=== PATIENT | male | born 1995 | race Caucasian/White ===

== ENCOUNTER 2023-04-19 17:58 | Emergency (ER) | payer MEDICAID, SELFPAY ==
[2023-04-19 18:11] VITALS: BP 110/63; PULSE 83; RESP 18; TEMP 37.7; O2SAT 99; BMI 21.0
--- NOTE | 2023-04-19 18:50 | ED.GENADULT ---
HPI - General Adult General Chief complaint: Post Op Complication Stated complaint: recent surgery lots of pain Time Seen by Provider: 04/19/23 17:59 History of Present Illness HPI narrative: This 28-year-old female transition to male underwent a hysterectomy 5 days ago and comes in with concern about pain and the possibility that he may have taken too much medicine. He states that he took 5 oxycodone tablets brought out through the day today. He does have a history of alcoholism and has gone through treatment. He states that he was not taking any medicines prior to this surgery. He arrives here with normal vital signs. His temperature is a bit below borderline fever at 99.9. He does not describe any particular new symptoms but states that there is a fair amount of anxiety around his pain and recovery from this surgery. He also is beginning to have some constipation from taking these medications. Related Data Home Medications Medication Instructions Recorded Confirmed cariprazine 3 mg capsule (Vraylar) 3 mg PO DAILY 04/19/23 04/19/23 cyproheptadine 2 mg/5 mL oral syrup 2 mg PO BID PRN 04/19/23 04/19/23 gabapentin 300 mg capsule 300 mg PO 3XD 04/19/23 04/19/23 medroxyprogesterone 10 mg tablet 30 mg PO DAILY 04/19/23 04/19/23 mirtazapine 30 mg tablet 30 mg PO QPM 04/19/23 04/19/23 nicotine (polacrilex) 4 mg buccal 4 mg PO nicotine cravings 04/19/23 lozenge olanzapine 10 mg tablet 10 mg PO QPM 04/19/23 04/19/23 oxycodone 5 mg tablet mg PO 04/19/23 simethicone 125 mg chewable tablet mg PO 04/19/23 (Gas Relief Extra Strength) testosterone cypionate 200 mg/mL mg IM 04/19/23 intramuscular oil viloxazine 100 mg capsule,extended 100 mg PO DAILY 04/19/23 04/19/23 release 24 hr (Qelbree) zolpidem 10 mg tablet 10 mg PO QPM 04/19/23 04/19/23 Allergies Allergy/AdvReac Type Severity Reaction Status Date / Time No Known Drug Allergies Allergy Verified 04/19/23 18:05 Review of Systems Status of ROS: Reports: 10 or more systems reviewed and unremarkable except as noted in History and below Narrative: Constitutional: No fevers, no weight gain or loss. Eyes: No discharge. No vision changes. HENT: No congestion, no sore throat, no ear pain. Cardiovascular: No chest pain, no palpitations. Respiratory: No shortness of breath, no wheezes, no cough. Gastrointestinal: No abdominal pain, no vomiting, no diarrhea. Genitourinary: No dysuria, no hematuria. Musculoskeletal: Normal range of motion. Skin: No rashes, no pruritis. Neurological: No dizziness, weakness, sensory change, speech change. Endo/Heme/Allergies: No bruising or bleeding. No polydipsia. Pysch: no suicidality. He reports anxiety symptoms with regard to his health and symptoms. All other systems reviewed and are negative. [facility] Social History Smoking Status: Current every day smoker Do you use any of these nicotine containing products: Vaping Products How often do you have a drink containing alcohol: never AUDIT-C Alcohol total score: 0 Non-prescribed substance use: marijuana (any form) Exam Narrative: Exam Narrative: Constitutional: Well-developed, well-nourished, no acute distress. HEENT: Normocephalic, atraumatic. Neck: Normal range of motion. Nontender. Supple. Heart: Regular. No murmurs. Normal rate. Intact distal pulses. Lungs: Clear to auscultation. No chest discomfort. No wheezes, rhonchi, or rales. Abdomen: Decreased bowel sounds bowel sounds. Diffuse tenderness in the lower abdomen. No rebound tenderness. Genitalia: Deferred. Back: No midline tenderness. Normal range of motion. Extremities: Normal range of motion. No injury. Skin: Intact. No rash. Warm. No erythema or pallor. Neurologic: No altered sensation. No weakness. Alert and oriented. Psychiatric: No suicidality. No insomnia. Nursing notes and vitals signs are reviewed. Const: Vital Signs, click to edit/add: Vital Signs - 24 hr 04/19/23 18:11 Temperature 99.9 F H Pulse Rate [Pulse Oximeter] 83 Respiratory Rate 18 Blood Pressure [Ri ght Upper Arm] 110/63 Pulse Oximetry 99 Course Vital Signs Vital signs: Initial Vital Signs Temperature 99.9 F H 04/19/23 18:11 Temperature Source Temporal Artery Scan 04/19/23 18:11 Pulse Rate 83 04/19/23 18:11 Respiratory Rate 18 04/19/23 18:11 Blood Pressure 110/63 04/19/23 18:11 Blood Pressure Mean 78 04/19/23 18:11 Pulse Oximetry 99 04/19/23 18:11 Vital Signs Temperature 99.9 F H 04/19/23 18:11 Pulse Rate 83 04/19/23 18:11 Respiratory Rate 18 04/19/23 18:11 Blood Pressure 110/63 04/19/23 18:11 Pulse Oximetry 99 04/19/23 18:11 Temperature 99.9 F H 04/19/23 18:11 Pulse Rate 83 04/19/23 18:11 Respiratory Rate 18 04/19/23 18:11 Blood Pressure 110/63 04/19/23 18:11 Pulse Oximetry 99 04/19/23 18:11 Medical Decision Making MDM Narrative Medical decision making narrative: This patient comes in reporting concern about taking oxycodone for pain relief after having hysterectomy 5 days ago. I did discuss repeating lab and imaging studies in the possibility that there is some complication with his surgery. He does have normal vital signs and his exam is reassuring. The patient declines any such studies. He states that he feels that oxycodone is causing more adverse effects than benefit for him. The patient did receive an intramuscular injection of morphine. I did provide prescriptions for Toradol, tramadol, and Zofran from the [facility] machine. Discharge Plan Discharge Clinical Impression: Post-op pain Patient Disposition: Home w/ Parent or Adult Condition: Stable Additional Instructions: Take medication as prescribed and needed. Activity as tolerated. Follow up with MD return if worsening. Prescriptions: No Action medroxyprogesterone 10 mg tablet 30 mg PO DAILY olanzapine 10 mg tablet 10 mg PO QPM cyproheptadine 2 mg/5 mL syrup 2 mg PO BID PRN mirtazapine 30 mg tablet 30 mg PO QPM gabapentin 300 mg capsule 300 mg PO 3XD simethicone [Gas Relief Extra Strength] 125 mg tablet,chewable PO testosterone cypionate 200 mg/mL oil IM zolpidem 10 mg tablet 10 mg PO QPM oxycodone 5 mg tablet PO nicotine (polacrilex) 4 mg lozenge 4 mg PO Vraylar 3 mg capsule 3 mg PO DAILY Qelbree 100 mg capsule,extended release 24hr 100 mg PO DAILY Follow Up/Referrals: Eunice Leigh MD [Primary Care Provider] - Stand Alone Forms: [employer] [facility] Info Instructions
[2023-04-19] MEDS: MORPHINE 10 MG/ML inj 8 MG IM (18:58)
== END 2023-04-19 19:13 | disposition home or self-care (01) ==
LOC: ED 19:11
PROVIDERS: Emergency Provider Emergency Medicine Emergency Medical Services; PCP Family Medicine
DX: G89.18 Other acute postprocedural pain (principal)
CPT/HCPCS: 96372; 99284; J2270

== ENCOUNTER 2023-06-01 20:53 | Outpatient (CLI) | payer MEDICAID, SELFPAY | END 2023-06-01 20:54 | disposition home or self-care (01) | LOC: SLEEP 20:57 | PROVIDERS: PCP Family Medicine; Visit Provider Internal Medicine | DX: G47.10 Hypersomnia, unspecified (principal) | CPT/HCPCS: 95810 ==

== ENCOUNTER 2024-10-11 07:03 | Outpatient (CLI) | payer MEDICAID, SELFPAY | END 2024-10-11 07:04 | disposition home or self-care (01) | LOC: AMB 10-13 13:44 | PROVIDERS: PCP Family Medicine; Visit Provider Family Medicine | DX: F41.9 Anxiety disorder, unspecified (principal) | CPT/HCPCS: A0998 ==